=== PATIENT | female | born 1955 | race Caucasian/White ===

== ENCOUNTER → 2017-12-22 | Day surgery (SDC) | payer BC ==
[~2017-12-22] VITALS: Ht 162.6 cm; Wt 61.2 kg
[~2017-12-22] MED LIST: ATOR10TA24 PO; LEV100 PO; LIDOCAINE/SOD BICARB 8.4% SYR ID ONE; MAGN250T5 PO; MULT-820 PO; NORMOSOL R SOLN(*) 1000 ML BAG 1,000 ML IV PRN; PROPOFOL EMUL(*) 10MG/ML 20 ML 60 ML ONE; UBID100C48 PO
[2017-12-22 08:14] VITALS: BP 162/95
[2017-12-22 10:30] VITALS: BP 106/68
[2017-12-22 11:08] VITALS: BP 146/86
[2017-12-22 11:09] VITALS: BP 146/91
== END ==
LOC: OR 02:15
PROVIDERS: ATTEND Family Medicine
DX: Z12.11 Encounter for screening for malignant neoplasm of colon (principal); E78.00 Pure hypercholesterolemia, unspecified; E03.9 Hypothyroidism, unspecified
CPT/HCPCS: 00812; 45378; J2704